=== PATIENT | male | born 1950 | race Caucasian/White ===

== ENCOUNTER 2019-06-10 10:24 | Emergency (ER) | payer MEDICARE, OTHER ==
[~2019-06-10 10:24] MED LIST: ALP5 PO; LEVO50TA80 PO; LISI-1 PO; LOSA50TA80 PO; ROSU20TA23 PO; ROSU5TAB8 PO; TRAZ100T31 PO
--- NOTE | 2019-06-10 10:26 | ER Report ---
History and Physical Time Seen By MD: 10:23 HPI/ROS CHIEF COMPLAINT: Left upper extremity paresthesias, intermittent diaphoresis HISTORY OF PRESENT ILLNESS: Patient is a 69-year-old male here with complaints of left upper extremity paresthesias, an episode of diaphoretic palms this morning. Patient started with the paresthesias and tingling sensation of the left upper extremity yesterday morning and became concerned when he became mildly diaphoretic prior to coming to the emergency department. Patient does have a history of hypertension, hyperlipidemia on treatment with amlodipine, Crestor but denies prior history of coronary artery disease. Patient was concerned that he may be having a coronary event so he took a full dose aspirin prior to arrival. Patient is afebrile, hemodynamically stable, denies chest pain or shortness breath. He does report having a mild headache REVIEW OF SYSTEMS: Constitutional: No fever, no chills. + Diaphoresis of palms Eyes: No discharge. ENT: No sore throat. Cardiovascular: No chest pain, no palpitations. Respiratory: No cough, no shortness of breath. Gastrointestinal: No abdominal pain, no vomiting. Genitourinary: No hematuria. Musculoskeletal: No back pain. Skin: No rashes. Neurological: + Mild headache, left upper extremity paresthesias without motor weakness Allergies: Coded Allergies: lisinopril (Verified Allergy, Intermediate, SEVERE COUGH, 06/10/19) Uncoded Allergies: RAW SHRIMP (Adverse Reaction, Intermediate, SWELLING, 08/06/11) Home Meds Reported Medications Trazodone Hcl (TRAZODONE HCL) 100 Mg Tablet, 100 MG PO HS, TAB 03/03/16 Losartan Potassium (LOSARTAN POTASSIUM) 50 Mg Tablet, 50 MG PO HS 03/03/16 Rosuvastatin Calcium (CRESTOR) 5 Mg Tablet, 2.5 MG PO HS 03/03/16 Levothyroxine Sodium (Levothyroxine Sodium) 50 Mcg Tablet, 50 MCG PO QHS, 0 Refills 08/06/11 Hx Smoking: No Smoking Status: Never Smoker Hx Alcohol Use: Yes Constitutional Vital Sign - Last 24 Hours 06/10/19 06/10/19 06/10/19 06/10/19 10:24 10:29 10:30 10:39 Temp 98.3 Pulse ??? 69 69 Resp 12 31 B/P (MAP) 155/86 (109) 155/86 142/84 (103) Pulse Ox 96 96 O2 Delivery Room Air 06/10/19 06/10/19 06/10/19 06/10/19 10:45 10:54 11:00 11:09 Pulse 67 70 Resp 13 21 B/P (MAP) 138/85 (102) 131/74 (93) Pulse Ox 96 94 06/10/19 06/10/19 06/10/19 06/10/19 11:15 11:24 11:30 11:39 Pulse ??? 64 Resp 19 B/P (MAP) ???/??? (1665) 132/83 (99) Pulse Ox 94 06/10/19 06/10/19 06/10/19 06/10/19 11:45 11:54 12:00 12:09 Pulse 62 61 Resp 21 18 B/P (MAP) 121/79 (93) 130/78 (95) Pulse Ox 94 96 Physical Exam General Appearance: The patient is alert, has no immediate need for airway protection and no signs of toxicity. Anxious appearing Eyes: Pupils equal and round no pallor or injection. ENT, Mouth: Mucous membranes are moist. Respiratory: There are no retractions, lungs are clear to auscultation. Cardiovascular: Regular rate and rhythm. Gastrointestinal: Abdomen is soft and non tender, no masses, bowel sounds normal. Neurological: No focal neurological deficits, intact motor strength in extremities, cranial nerves intact Skin: Warm and dry, no rashes. Musculoskeletal: Neck is supple non tender. Extremities are nontender, nonswollen and have full range of motion. DIFFERENTIAL DIAGNOSIS: After history and physical exam differential diagnosis was considered for chest pain including but not limited to myocardial ischemia, pericarditis pulmonary embolus, chest wall pain, pleural inflammation and pulmonary infectious causes, CVA, TIA Medical Decision Making Data Points Result Diagram: 06/10/19 1040 06/10/19 1040 Laboratory Hematology Test 06/10/19 10:40 White Blood Count 4.8 k/uL (4.5-11.0) Red Blood Count 4.47 M/uL (4.00-5.60) Hemoglobin 15.0 g/dL (14.0-18.0) Hematocrit 42.7 % (42.0-52.0) Mean Corpuscular Volume 95.6 fL (80.0-96.0) Mean Corpuscular Hemoglobin 33.5 pg (26.0-33.0) H Mean Corpuscular Hemoglobin Concent 35.0 g/dL (32.0-36.0) Red Cell Distribution Width 13.4 % (11.5-14.5) Platelet Count 263 K/uL (150-450) Mean Platelet Volume 6.5 fL (7.2-11.1) L Neutrophils (%) (Auto) 57.2 % (39.4-72.5) Lymphocytes (%) (Auto) 32.6 % (17.6-49.6) Monocytes (%) (Auto) 8.3 % (4.1-12.4) Eosinophils (%) (Auto) 1.0 % (0.4-6.7) Basophils (%) (Auto) 0.9 % (0.3-1.4) Nucleated RBC Relative Count (auto) 0.1 /100WBC Neutrophils # (Auto) 2.8 K/uL (2.0-7.4) Lymphocytes # (Auto) 1.6 K/uL (1.3-3.6) Monocytes # (Auto) 0.4 K/uL (0.3-1.0) Eosinophils # (Auto) 0.0 K/uL (0.0-0.5) Basophils # (Auto) 0.0 K/uL (0.0-0.1) Nucleated RBC Absolute Count (auto) 0.00 K/uL Chemistry Test 06/10/19 10:40 Sodium Level 138 mmol/L (137-145) Potassium Level 4.1 mmol/L (3.5-5.0) Chloride Level 102 mmol/L (98-107) Carbon Dioxide Level 24 mmol/L (22-30) Blood Urea Nitrogen 14 mg/dl (9-21) Creatinine 0.90 mg/dl (0.66-1.25) Glomerular Filtration Rate Calc > 60.0 Random Glucose 149 mg/dl (75-110) Calcium Level 9.8 mg/dl (8.4-10.2) Total Bilirubin 0.8 mg/dl (0.2-1.3) Aspartate Amino Transf (AST/SGOT) 26 U/L (0-35) Alanine Aminotransferase (ALT/SGPT) 33 U/L (0-56) Alkaline Phosphatase 79 U/L (0-126) Troponin I < 0.012 ng/ml Total Protein 7.8 g/dl (6.3-8.2) Albumin 4.5 g/dl (3.5-5.0) Lipase 92 U/L (23-300) EKG/Imaging EKG Interpretation PATIENT NAME: DENNISE DURAND : [id number] MR: [id number] V: [id number] EXAM DATE: ORDERING PHYSICIAN: MIGUEL RICO TECHNOLOGIST: Test Reason : arm numbness Blood Pressure : / mmHG Vent. Rate : 065 BPM Atrial Rate : 065 BPM P-R Int : 182 ms QRS Dur : 098 ms QT Int : 452 ms P-R-T Axes : 050 005 037 degrees QTc Int : 470 ms Normal sinus rhythm Normal ECG No previous ECGs available Referred By: Confirmed By: Imaging PATIENT NAME: Dennise Durand : 1950 MR: [id number] V: [id number] EXAM DATE: ORDERING PHYSICIAN: MIGUEL RICO TECHNOLOGIST: Location: [facility] - [place] Patient: Dennise Durand : 1950 Visit/Account:[id number] Date of Sevice: 06/10/2019 CT Head without contrast Indication: Headache. Left arm weakness and numbness. Comparison: None available Technique: Axial CT images were obtained through the brain from the skull base to the vertex without administration of IV contrast. Reformatted coronal and sagittal images were also obtained. One of the following dose optimization techniques was utilized in the performance of this exam: automated exposure control; adjustment of the mA and/or kV according to the patient's size; or use of an iterative reconstruction technique. Specific details can be referenced in the facility's radiology CT exam operational policy. Findings: No evidence of mass, mass effect, or midline shift. No acute intracranial hemorrhage or acute territorial infarction. No extra-axial fluid collection or hydrocephalus. No abnormal density. Verdin/white matter differentiation appears normal. Bony structures show no fractures or lesions. Mild mucosal thickening seen in the inferior aspects of both maxillary sinuses. The remaining sinuses and mastoids visualized are clear. IMPRESSION: 1. No acute intracranial abnormality. 2. Mild bilateral maxillary sinus disease. ED Course/Re-evaluation ED Course Patient is a 69-year-old male here with complaints of left upper extremity paresthesias since yesterday morning, episode of diaphoresis. EKG showed no ischemic changes. CT imaging of the head showed no acute findings. Electrolytes were stable, troponin was negative. Chest x-ray showed no acute consolidations. Patient was given 1 L of fluid bolus. I discussed these findings with the patient and he voiced understanding. Return precautions provided. Close PCP follow-up recommended. Decision to Disposition Date: Jun 10, 2019 Decision to Disposition Time: 13:28 Depart Departure Latest Vital Signs Vital Signs Date Time Temp Pulse Resp B/P (MAP) Pulse Ox O2 Delivery O2 Flow Rate FiO2 06/10/19 12:09 61 18 96 06/10/19 12:00 130/78 (95) 06/10/19 10:29 98.3 Room Air Impression: Primary Impression: Paresthesia of arm Additional Impression: Diaphoresis Condition: Improved Disposition: HOME OR SELF-CARE Patient Instructions: Paresthesia (ED) Additional Instructions: Please drink plenty of water. Please follow up closely with her primary care provider. Please return promptly if you develop fevers, chest pains, shortness of breath, inability keep down food or fluids, motor weakness. CT imaging of the head showed no acute findings, chest x-ray was clear, cardiac tests showed no signs of a heart attack or arrhythmias. Problem Qualifiers MIGUEL RICO DO Jun 10, 2019 10:26
[2019-06-10] MEDS ORDERED: NS(*) 0.9% 1000 ML BAG 1,000 ML IV ONE (10:44)
--- NOTE | 2019-06-10 11:05 | EKG ---
FACILITY: [facility] - [place] PATIENT NAME: YOON FAM : [id number] MR: [id number] V: [id number] EXAM DATE: ORDERING PHYSICIAN: MIGUEL RICO TECHNOLOGIST: Test Reason : arm numbness Blood Pressure : / mmHG Vent. Rate : 065 BPM Atrial Rate : 065 BPM P-R Int : 182 ms QRS Dur : 098 ms QT Int : 452 ms P-R-T Axes : 050 005 037 degrees QTc Int : 470 ms Normal sinus rhythm Normal ECG No previous ECGs available Confirmed by BEBETO MATHEW ([id number]) on 06/10/2019 2:41:42 PM Referred By: Confirmed By:BEBETO MATHEW
[2019-06-10 11:10] LABS: PLATELET COUNT, AUTOMATED 263 K/uL (150-450)
--- NOTE | 2019-06-10 12:12 | RADIOLOGY IMAGING REPORT ---
FACILITY: [facility] - [place] PATIENT NAME: Dennise Durand : 1950 MR: [id number] V: [id number] EXAM DATE: ORDERING PHYSICIAN: MIGUEL RICO TECHNOLOGIST: Location: [facility] - [place] Patient: Dennise Durand : 1950 Visit/Account:[id number] Date of Sevice: 06/10/2019 CT Head without contrast Indication: Headache. Left arm weakness and numbness. Comparison: None available Technique: Axial CT images were obtained through the brain from the skull base to the vertex without administration of IV contrast. Reformatted coronal and sagittal images were also obtained. One of the following dose optimization techniques was utilized in the performance of this exam: autom ated exposure control; adjustment of the mA and/or kV according to the patient's size; or use of an i terative reconstruction technique. Specific details can be referenced in the facility's radiology CT exam operational policy. Findings: No evidence of mass, mass effect, or midline shift. No acute intracranial hemorrhage or acute territorial infarction. No extra-axial fluid collection or hydrocephalus. No abnormal density. Verdin/white matter differentiat ion appears normal. Bony structures show no fractures or lesions. Mild mucosal thickening seen in the inferior aspects of both maxillary sinuses. The remaining sinuses and mastoids visualized are clear. IMPRESSION: 1. No acute intracranial abnormality. 2. Mild bilateral maxillary sinus disease. Report Dictated By: Sebastian Ortega at 06/10/2019 11:59 AM Report E-Signed By: Sebastian Ortega at 06/10/2019 12:05 PM WSN:[id number]
[2019-06-10 13:15] VITALS: BP 148/93
--- NOTE | 2019-06-10 13:29 | RADIOLOGY IMAGING REPORT ---
FACILITY: [facility] PATIENT NAME: Dennise Durand : 1950 MR: [id number] V: [id number] EXAM DATE: ORDERING PHYSICIAN: MIGUEL RICO TECHNOLOGIST: Location: [facility] - [place] Patient: Dennise Durand : 1950 Visit/Account:[id number] Date of Sevice: 06/10/2019 CHEST SINGLE AP HISTORY: Chest pain. Arm numbness. COMPARISON: None FINDINGS: Cardiomediastinal contours: The heart size is normal. Lungs and pleura: There is no finding of an infiltrate, lymphadenopathy or pleural effusion. Bones/soft tissues: There are no findings of a fracture. IMPRESSION: Normal portable chest x-ray. Report Dictated By: Reinaldo Torres MD at 06/10/2019 1:20 PM Report E-Signed By: Reinaldo Torres MD at 06/10/2019 1:21 PM WSN:[id number]
== END 2019-06-10 13:33 | disposition home or self-care (01) ==
LOC: ER 10:31
DX: R20.2 Paresthesia of skin (principal); R61 Generalized hyperhidrosis
CPT/HCPCS: 70450; 71045; 83690; 84484; 85025; 93005; 96360; 99284; J7030; 82040; 82247; 82310; 82374; 82435; 82565; 82947; 84075; 84132; 84155; 84295; 84450; 84460; 84520